=== PATIENT | male | born 1975 | race Two or more races ===

== ENCOUNTER 2023-08-03 08:23 | Emergency (ER) | payer MEDICAID ==
[~2023-08-03] VITALS: Ht 154.9 cm; Wt 73.9 kg
[2023-08-03 08:36] VITALS: O2SAT 97
[2023-08-03] MEDS ORDERED: IBUPROFEN 800 MG TABLET PO ONE (09:00)
[2023-08-03] MEDS ORDERED: IBUPROFEN 800 MG TABLET ONE (09:05)
[2023-08-03 09:12] LABS: BASOPHILS % (AUTO) 0.5 % (0.0-2.0); EOSINOPHILS # (AUTO) 0.1 K/uL (0.0-0.7); EOSINOPHILS % (AUTO) 2.5 % (0.0-7.0); HEMATOCRIT 41.2 % (36.7-47.1); LYMPHOCYTES # (AUTO) 1.5 K/uL (0.8-4.8); LYMPHOCYTES % (AUTO) 26.5 % (20.5-51.5); MEAN CORPUSCULAR HEMOGLOBIN 32.7 uug (23.8-33.4); MEAN CORPUSCULAR HGB CONC 34 g/dL (32.5-36.3); MEAN CORPUSCULAR VOLUME 96.4 fL (73.0-96.2); MONOCYTES # (AUTO) 0.4 K/uL (0.1-1.30); MONOCYTES % (AUTO) 7.6 % (0.0-11.0); NEUTROPHILS # (AUTO) 3.7 K/uL (1.8-8.9); NEUTROPHILS % (AUTO) 62.9 % (38.5-71.5); PLATELET COUNT (AUTO) 255 K/uL (152-348); RED BLOOD CELL COUNT(AUTO) 4.28 MIL/uL (4.06-5.63); RED CELL DISTRIBUTION WIDTH 13.6 % (12.1-16.2); WHITE BLOOD COUNT (AUTO) 5.8 K/uL (3.6-10.2)
[2023-08-03 09:18] LABS: DIFFERENTIAL COMMENT 1
[2023-08-03 09:25] LABS: CREATININE 0.9 mg/dL (0.6-1.3); POTASSIUM 4.2 mmol/L (3.5-5.1)
[2023-08-03 09:31] LABS: ALBUMIN 3.9 g/dL (3.4-5.0); BILIRUBIN,TOTAL 0.5 mg/dL (0.2-1.0); TOTAL PROTEIN, SERUM 7.7 g/dL (6.4-8.2); URIC ACID 7.9 mg/dL (3.5-7.2)
[2023-08-03] MEDS ORDERED: COLCHICINE 0.6 MG TABLET PO ONE (10:30)
[2023-08-03] MEDS ORDERED: COLCHICINE 0.6 MG TABLET ONE (10:57)
[2023-08-03] MEDS ORDERED: IBUP-1958 PO (11:49)
[2023-08-03] MEDS ORDERED: PRED20TA PO (11:49)
[2023-08-03] MEDS ORDERED: COLC0.6T67 PO (11:49)
== END 2023-08-03 12:06 | disposition home or self-care (01) ==
LOC: ER 08:34
DX: M79.672 Pain in left foot (principal); M10.9 Gout, unspecified
CPT/HCPCS: 36415; 73630; 84550; 85025; A4663

== ENCOUNTER 2024-02-29 13:51 | Emergency (ER) | payer MEDICAID ==
[~2024-02-29] VITALS: Ht 154.9 cm; Wt 77.1 kg
[~2024-02-29 13:51] MED LIST: COLC0.6T67 PO; IBUP-1958 PO; PRED20TA PO
[2024-02-29] MEDS ORDERED: KETOROLAC TROMETHAMINE 60 MG INJ IM ONE (15:44)
[2024-02-29] MEDS: KETOROLAC TROMETHAMINE 60 MG INJ IM ONE (15:51)
[2024-02-29] MEDS ORDERED: HYDR-3980 PO (16:33)
[2024-02-29 16:55] VITALS: BP 121/74; TEMP 208.8; O2SAT 96
== END 2024-02-29 16:56 | disposition home or self-care (01) ==
LOC: ER 13:52
DX: S39.012A Strain of muscle, fascia and tendon of lower back, initial encounter (principal); Z79.899 Other long term (current) drug therapy; X50.0XXA Overexertion from strenuous movement or load, initial encounter; Y93.89 Activity, other specified; Y92.89 Other specified places as the place of occurrence of the external cause; Y99.8 Other external cause status
CPT/HCPCS: 99283; 72100; 96372; J1885; A4606; A4663

== ENCOUNTER 2024-11-17 11:58 | Emergency (ER) | payer BC, MEDICAID ==
[~2024-11-17] VITALS: Ht 154.9 cm; Wt 80.7 kg
[~2024-11-17 11:58] MED LIST changes: +HYDR-3980 PO
[2024-11-17 12:01] VITALS: O2SAT 97
[2024-11-17] MEDS ORDERED: SULF1TAB48 PO (12:36)
[2024-11-17] MEDS ORDERED: COLC0.6T67 PO (12:36)
== END 2024-11-17 12:27 | disposition home or self-care (01) ==
LOC: ER 11:58
DX: M10.9 Gout, unspecified (principal); L03.115 Cellulitis of right lower limb; Z79.52 Long term (current) use of systemic steroids; Z79.899 Other long term (current) drug therapy
CPT/HCPCS: A4606; A4663

== ENCOUNTER 2025-05-30 00:14 | Emergency (ER) | payer BC ==
[~2025-05-30] VITALS: Ht 154.9 cm; Wt 81.6 kg
[~2025-05-30 00:14] MED LIST changes: +SULF1TAB48 PO
[2025-05-30] MEDS ORDERED: COLC0.6T67 PO (00:32)
[2025-05-30] MEDS ORDERED: HYDR-3980 PO (00:32)
[2025-05-30] MEDS ORDERED: ONDA4TAB11 PO (00:32)
[2025-05-30] MEDS ORDERED: INDO50CA92 PO (00:39)
[2025-05-30] MEDS ORDERED: INDOMETHACIN 25 MG CAPSULE ONE (00:47)
[2025-05-30] MEDS: INDOMETHACIN 25 MG CAPSULE PO ONE (00:48)
[2025-05-30 01:01] VITALS: BP 152/85; TEMP 98; O2SAT 95
== END 2025-05-30 01:02 | disposition home or self-care (01) ==
LOC: ER 00:27
DX: M10.00 Idiopathic gout, unspecified site (principal); M25.572 Pain in left ankle and joints of left foot; M79.672 Pain in left foot; Z79.52 Long term (current) use of systemic steroids; Z79.899 Other long term (current) drug therapy
CPT/HCPCS: A4606; A4663

== ENCOUNTER 2025-09-28 05:41 | Emergency (ER) | payer BC ==
[~2025-09-28] VITALS: Ht 154.9 cm; Wt 80.7 kg
[~2025-09-28 05:41] MED LIST changes: +INDO50CA92 PO; +ONDA4TAB11 PO
[2025-09-28 05:43] VITALS: BP 122/87
[2025-09-28] MEDS ORDERED: HYDR-3974 PO (07:23)
[2025-09-28] MEDS ORDERED: KETOROLAC TROMETHAMINE 15 MG INJ ONE (07:29)
[2025-09-28] MEDS ORDERED: DEXAMETHASONE SOD PHOSPHATE 4 MG INJ ONE (07:29)
[2025-09-28] MEDS: DEXAMETHASONE SOD PHOSPHATE 4 MG INJ IM ONE (07:38)
[2025-09-28] MEDS: KETOROLAC TROMETHAMINE 15 MG INJ IM ONE (07:38)
[2025-09-28 07:55] VITALS: BP 122/87; O2SAT 100
== END 2025-09-28 07:55 | disposition home or self-care (01) ==
LOC: ER 05:41
DX: M10.071 Idiopathic gout, right ankle and foot (principal); M19.071 Primary osteoarthritis, right ankle and foot; Z79.52 Long term (current) use of systemic steroids; Z79.899 Other long term (current) drug therapy; Z88.7 Allergy status to serum and vaccine
CPT/HCPCS: 99284; 96372 ×2; J1885; J1100; A4606; A4663